=== PATIENT | male | born 1945 | race Caucasian/White ===

== ENCOUNTER → 2017-01-22 | Outpatient (CLI) | payer OTHER ==
--- NOTE | 2017-01-22 13:38 | KCIC ---
PROCEDURE MRI study of the right shoulder without contrast HISTORY Chronic right shoulder pain for years. Repetitive throwing. TECHNIQUE Noncontrast MRI sequences of the right shoulder were performed in all 3 planes. COMPARISON None available. FINDINGS There is increased signal within the supraspinatus tendon of the rotator cuff consistent with tendinosis. There is a partial articular surface tear of the lateral aspect of the supraspinatus tendon. This extends to through at least 50 percent of the thickness of the tendon. No complete rotator cuff tear is seen otherwise. The subscapularis tendon and transverse ligament are intact. The tendon of the long head of the biceps is intact. No muscle atrophy is seen. 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 There is spurring of the inferior edge of the acromial process. A type 3 acromial process is seen. These findings may impinge the acromial humeral space. There are chronic erosive changes of the lateral aspect the humeral head secondary to chronic impingement. The glenoid labrum is intact. No paralabral ganglion cyst or spinoglenoid notch ganglion cyst is seen. The glenohumeral joint is unremarkable. No significant glenohumeral joint effusion is seen. No marrow infiltrative process or contusion or fracture is seen. IMPRESSION Partial articular surface tear of the lateral aspect of the supraspinatus tendon. No complete rotator cuff tear. Impingement of the acromial humeral space. Electronically signed by: Angelo Mata MD (Jan 22, 2017 13:36:29)
== END | disposition home or self-care (01) ==
LOC: KCIC MRI 10:46
PROVIDERS: ATTEND Internal Medicine
DX: M25.511 Pain in right shoulder (principal)
CPT/HCPCS: 73221